=== PATIENT | male | born 1975 ===

== ENCOUNTER 2018-01-28 06:31 | Emergency (ER) | payer SELFPAY ==
[2018-01-28 06:37] VITALS: TEMP 98.2
[2018-01-28] MEDS ORDERED: Divalproex 500 mg ER Tab PO STA (07:18)
[2018-01-28] MEDS ORDERED: Divalproex 500 mg DR Tab PO ONE (07:32)
[2018-01-28 07:37] LABS: BASO % 0.6 % (0.0-2.0); EOS # 0.2 K/uL (0.0-0.7); EOS % 3.4 % (0.0-4.0); LYMPH # 1.8 K/uL (1.0-4.3); LYMPH % 24.8 % (20.0-40.0); MEAN CELL VOLUME 84.9 fL (80.0-94.0); MEAN CORPUSCULAR HEMOGLOBIN 28.6 pg (27.0-31.0); MEAN CORPUSCULAR HGB CONC 33.7 g/dL (33.0-37.0); MONO # 0.4 K/uL (0.0-0.8); MONO % 6.1 % (0.0-10.0); NEUT # 4.8 K/uL (1.8-7.0); NEUT % 65.1 % (50.0-75.0); NRBC % 0.1 % (0.0-2.0); RBC 4.89 Mil/uL (4.40-5.90); RED CELL DISTRIBUTION WIDTH 13.3 % (11.5-14.5); WHITE BLOOD COUNT 7.4 K/uL (4.8-10.8)
[2018-01-28 07:52] LABS: ALB/GLOB RATIO 1.4 (1.0-2.1); ALBUMIN 4.2 g/dL (3.5-5.0); ALT/SGPT 29 U/L (21-72); AST/SGOT 21 U/L (17-59); BLOOD UREA NITROGEN 16 mg/dL (9-20); CALCIUM 9.4 mg/dl (8.6-10.4); GFR NON-AFRICAN AMERICAN > 60
--- NOTE | 2018-01-28 08:17 | C.PDOC ---
History Of Present Illness 42 y/o male brought in by EMS for evaluation after having a seizure on his way to work this morning. Patient has a history of seizure disorder and reports he typically has seizures once per month. He denies any pain, head trauma, bit tongue, or incontinence. States he is complaint with taking his Depakote 500mg daily, which he takes at night. Of note, patient also complains of difficulty sleeping, restlessness. Tried taking unknown OTC sleep medication with minimal relief. Otherwise patient denies nausea, vomiting, facial droop, numbness, extremity weakness, or visual changes. Time Seen by Provider: 01/28/18 07:08 Chief Complaint (Nursing): Seizure History Per: Patient History/Exam Limitations: no limitations Number Of Seizures: One Past Medical History Reviewed: Historical Data, Nursing Documentation, Vital Signs Vital Signs: Last Vital Signs Temp 98.2 F 01/28/18 06:36 Pulse 65 01/28/18 07:15 Resp 15 01/28/18 07:15 BP 133/83 01/28/18 06:36 Pulse Ox 95 01/28/18 07:15 - Medical History PMH: Seizures Family History: States: No Known Family Hx - Social History Hx Tobacco Use: No Hx Alcohol Use: No Hx Substance Use: No - Immunization History Hx Tetanus Toxoid Vaccination: No Review Of Systems Constitutional: Negative for: Fever Eyes: Negative for: Vision Change Gastrointestinal: Negative for: Nausea, Vomiting Musculoskeletal: Negative for: Neck Pain, Back Pain Skin: Negative for: Lesions, Bruising Neurological: Positive for: Seizures. Negative for: Weakness, Numbness, Incoordination, Change in Speech, Headache, Dizziness Physical Exam - Physical Exam Appears: Non-toxic, No Acute Distress Skin: Warm, Dry, No Ecchymosis Head: Atraumatic, Normacephalic, No Swelling, No Laceration Eye(s): bilateral: Normal Inspection (no nystagmus), PERRL, EOMI Oral Mucosa: Moist Neck: Normal ROM, No Midline Cervical Tenderness, No Paracervical Tenderness, Supple Chest: Symmetrical Cardiovascular: Rhythm Regular, No Murmur Respiratory: Normal Breath Sounds, No Accessory Muscle Use Gastrointestinal/Abdominal: Soft, No Tenderness, No Distention Extremity: Bilateral: Atraumatic, Normal Color And Temperature, Normal ROM Neurological/Psych: Oriented x3, Normal Speech, Normal Cranial Nerves, Normal Motor, Normal Sensation Gait: Steady ED Course And Treatment - Laboratory Results Result Diagrams: 01/28/18 07:31 01/28/18 07:31 O2 Sat by Pulse Oximetry: 95 (RA) Pulse Ox Interpretation: Normal Medical Decision Making Medical Decision Making: Initial Plan: --Depakote 500mg PO --Blood work --UA Final Impression: typical seizure good Depakote compliance, though taking QHS recommended taking Depakote in AM neuro f/u Disposition Doctor Will See Patient In The: Office Counseled Patient/Family Regarding: Studies Performed, Diagnosis - Disposition Referrals: [facility] [Outside] [facility] [Outside] [facility] [Outside] Samson Hui MD [Staff Provider] - Disposition: HOME/ ROUTINE Disposition Time: 08:16 Condition: GOOD Additional Instructions: Sigue tomando sheth Depakote 500 ER EN LA MANANA mejor que en la noche Sigue con sheth Neurologo o' con Dr. Hui (neurologo) para considerar aumentando sheth dosis de Kepakote. Instructions: Seizures, Adult (DC) Forms: [employer] (H[place]er), Work Excuse Print Language: [place] - Clinical Impression Clinical Impression: Seizure - Scribe Statement The provider has reviewed the documentation as recorded by the Amandoibajcy Lira Provider Attestation: All medical record entries made by the Scribe were at my direction and personally dictated by me. I have reviewed the chart and agree that the record accurately reflects my personal performance of the history, physical exam, medical decision making, and the department course for this patient. I have also personally directed, reviewed, and agree with the discharge instructions and disposition.
[2018-01-28 08:27] VITALS: BP 116/73; PULSE 62; RESP 18
[2018-01-28 09:32] VITALS: O2SAT 95
== END 2018-01-28 08:30 | disposition home or self-care (01) ==
LOC: C.ER 06:31
DX: G40.909 Epilepsy, unspecified, not intractable, without status epilepticus (principal)